=== PATIENT | male | born 1975 | race Caucasian/White ===

== ENCOUNTER 2016-07-20 09:45 | Emergency (ER) | payer OTHER ==
[~2016-07-20] VITALS: Ht 185.4 cm; Wt 182.6 kg
[2016-07-20 09:45] VITALS: BP 151/107
[2016-07-20] MEDS ORDERED: KETOROLAC 30 MG/1 ML ONE (10:05)
[2016-07-20] MEDS ORDERED: BACITRACIN ZINC OINT 500U/GM, 0.9 GM ONE (10:15)
[2016-07-20] MEDS ORDERED: KETOROLAC 30 MG/1 ML IM ONE (10:30)
== END 2016-07-20 10:48 | disposition home or self-care (01) ==
LOC: ED 10:40
DX: S93.492A Sprain of other ligament of left ankle, initial encounter (principal); S80.02XA Contusion of left knee, initial encounter; I10 Essential (primary) hypertension; E11.9 Type 2 diabetes mellitus without complications; W17.89XA Other fall from one level to another, initial encounter; Y93.89 Activity, other specified; Y92.89 Other specified places as the place of occurrence of the external cause; Y99.8 Other external cause status
CPT/HCPCS: 73564; 73610; 96372; 99284; J1885